=== PATIENT | male | born 1960 | race Caucasian/White ===

== ENCOUNTER 2022-04-18 09:36 | Emergency (ER) | payer BC, SELFPAY ==
[2022-04-18 10:32] VITALS: BP 143/85; PULSE 93; RESP 16; TEMP 35.9; BMI 23.4
[2022-04-18 14:05] VITALS: BP 151/84; PULSE 94; RESP 18; O2SAT 95
--- NOTE | 2022-04-18 14:27 | ED_ITS ---
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 No trauma no injury, but he does uses arms heavily, but now he has been off work. I wakes up in the morning very stiff and sore. He tried some ibuprofen that really upsets his stomach, but it helped his hand significantly. He has not had any fever chills other synovitis type symptoms. Patient does take blood pressure medication lisinopril for his hypertension, otherwise is quite healthy, he is very physically active. No redness or warmth or ACL or red cellulitic streaking noted Related Data Home Medications Medication Instructions Recorded Confirmed lisinopril 20 mg tablet 30 mg PO DAILY 04/18/22 04/18/22 Previous Rx's Medication Instructions Recorded methylprednisolone 4 mg tablets in See Rx Instructions PO .COMPLEX 04/18/22 a dose pack (Medrol (Didier)) #21 ea Allergies Allergy/AdvReac Type Severity Reaction Status Date / Time No Known Drug Allergies Allergy Verified 04/18/22 10:37 Review of Systems Status of ROS: Reports: 6 or more systems reviewed and unremarkable except as noted in History and below [facility] Medical History Hypertension Social History Smoking Status: Current every day smoker What tobacco products do you use: cigarettes Second hand tobacco smoke exposure: Yes How often do you have a drink containing alcohol: monthly or less How many standard drinks containing alcohol do you have on a typical day: 1 or 2 How often do you have six or more drinks on one occasion: Never AUDIT-C Alcohol total score: 1 Non-prescribed substance use: denies use Exam Narrative: Exam Narrative: Objective: Patient's vital signs are unremarkable and slightly elevated blood pressure He is alert orient x3 no distress He has got bilateral scarring on his wrist he had a carpal tunnel on the right that retain fluid in the had to have the forearm opened up to mid forearm. He has no redness or warmth of either hand but he does have some mild soft tissue swelling of his wrist bilaterally and there is no erythema or warmth, he also has limited director presales strength bilaterally consistent with inflammation is wrist. Actually has full passive range of motion of his wrist and fingers. Const: Vital Signs, click to edit/add: Vital Signs - 24 hr 04/18/22 10:32 04/18/22 14:05 Temperature 96.7 F L Pulse Rate [Right Pulse Oximeter] 93 94 Respiratory Rate 16 18 Blood Pressure [Ri t Upper Arm] 143/85 H 151/84 H Pulse Oximetry 95 Oxygen Delivery Me thod Room Air Room Air Course Vital Signs Vital signs: Initial Vital Signs Temperature 96.7 F L 04/18/22 10:32 Temperature Source Temporal Artery Scan 04/18/22 10:32 Pulse Rate 93 04/18/22 10:32 Pulse Rhythm 04/18/22 10:32 Respiratory Rate 16 04/18/22 10:32 Blood Pressure 143/85 H 04/18/22 10:32 Blood Pressure Mean 104 04/18/22 10:32 Blood Pressure Position Supine 04/18/22 10:32 Oxygen Delivery Method 04/18/22 10:32 Vital Signs Temperature 96.7 F L 04/18/22 10:32 Pulse Rate 93 04/18/22 10:32 Respiratory Rate 16 04/18/22 10:32 Blood Pressure 143/85 H 04/18/22 10:32 Oxygen Delivery Method 04/18/22 10:32 Temperature 96.7 F L 04/18/22 10:32 Pulse Rate 94 04/18/22 14:05 Respiratory Rate 18 04/18/22 14:05 Blood Pressure 151/84 H 04/18/22 14:05 Pulse Oximetry 95 04/18/22 14:05 Oxygen Delivery Method 04/18/22 14:05 Medical Decision Making MDM Narrative Medical decision making narrative: Patient has bilateral wrist swelling 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 I would recommend bilateral wrist splints to wear around the clock for the next few days, light activity, continue icing, at Advil bothers his stomach but he is able to tolerate aspirin would recommend 2 adult aspirin twice a day for the next week, also give a Medrol Dosepak, will check a heme 4 basic 7 a CRP. He should recheck with his regular doctor within the next 2-3 days all: Back with the results of his labs if they are abnormal. Lab Data Labs: Lab Results 04/18/22 04/18/22 Range/Units 14:44 14:44 WBC 6.26 (4.50-11.00) K/uL RBC 4.97 (4.30-5.90) m/uL Hgb 15.3 (13.5-17.5) gm/dL Hct 43.3 (37.0-53.0) % MCV 87 (80-100) fL MCH 31 (26-34) pg MCHC 35 (32-36) gm/dL RDW Coeff of Rosalina 12.0 (11.5-15.5) % Plt Count 415 (140-440) K/uL Neut % (Auto) 64.0 (42.0-72.0) % Lymph % (Auto) 22.4 (20-44) % [place] % (Auto) 9.1 (0.0-11.0) % Eos % (Auto) 4.0 (0.0-7.0) % Baso % (Auto) 0.3 (0.0-3.0) % Neut # (Auto) 4.01 (1.7-7.0) K/uL Lymph # (Auto) 1.40 (0.90-2.90) K/uL [place] # (Auto) 0.60 (0.00-0.90) K/UL Eos # (Auto) 0.25 (0.00-0.50) K/uL Baso # (Auto) 0.02 (0.00-0.30) K/uL Sodium 131 L (135-149) mmol/L Potassium 4.6 (3.6-5.1) mmol/L Chloride 98 (96-114) mmol/L Carbon Dioxide 24 (20-32) mmol/L BUN 14 (7-30) mg/dL Creatinine 0.7 (0.5-1.5) mg/dL Estimated Creat Clear 68.23 Estimated GFR 104 ml/min Glucose 102 (60-115) mg/dL Uric Acid 4.1 (2.2-8.4) mg/dL Calcium 9.2 (8.4-10.6) mg/dL C-Reactive Protein 4.0 H (0.5-1.0) mg/dL Discharge Plan Discharge Clinical Impression: Acute pain of both wrists Patient Disposition: Home w/ Parent or Adult Condition: Stable Additional Instructions: Splints to wear around the clock, make sure they are not too tight, icing 20 minutes 3 to 4 times a day, aspirin to twice a day for 7 days, Medrol Dosepak will be called into your pharmacy, recommend recheck with your doctor in 2-3 days to make sure this is working, will call back with abnormalities in your blood work Activity Level: Light activity Discharge Diet: Regular Prescriptions: New methylprednisolone [Medrol (Didier)] 4 mg tablets,dose pack See Rx Instructions .ROUTE .COMPLEX Qty: 21 0RF Rx Instructions: orally per package directions No Action lisinopril 20 mg tablet 30 mg PO DAILY Label Comments: TAKE ONE TABLET BY MOUTH ONE TIME DAILY Stand Alone Forms: ASOCSth Info Instructions
[2022-04-18 14:55] LABS: Basophils Absolute Auto 0.02 K/uL (0.00-0.30); Basophils Percent Auto 0.3 % (0.0-3.0); Eosinophils Absolute Auto 0.25 K/uL (0.00-0.50); Hematocrit 43.3 % (37.0-53.0); Hemoglobin* 15.3 gm/dL (13.5-17.5); Immature Granulocytes Abs Auto 0.01 K/uL (0.00-0.30); Immature Granulocytes Pct Auto 0.2 %; Lymphocytes Percent Auto 22.4 % (20-44); Mean Corpuscular HGB Conc 35 gm/dL (32-36); Mean Corpuscular Hemoglobin 31 pg (26-34); Mean Corpuscular Volume 87 fL (80-100); Monocytes Percent Auto 9.1 % (0.0-11.0); Neutrophils Absolute Auto 4.01 K/uL (1.7-7.0); Platelet Count* 415 K/uL (140-440); Red Blood Count 4.97 m/uL (4.30-5.90); White Blood Count* 6.26 K/uL (4.50-11.00)
[2022-04-18 14:59] LABS: Slide Review Reflex No
[2022-04-18 15:06] LABS: Chloride* 98 mmol/L (96-114); Potassium* 4.6 mmol/L (3.6-5.1); Sodium* 131 mmol/L (135-149)
--- NOTE | 2022-04-18 15:06 | ED.NURSE ---
Wrist splint placed on right and left wrists.
[2022-04-18 15:09] LABS: Creatinine* 0.7 mg/dL (0.5-1.5); Est. Creatinine Clearance* 68.23; Estimated Glomerular Filt Rate 104 ml/min
[2022-04-18 15:10] LABS: Blood Urea Nitrogen* 14 mg/dL (7-30); Calcium* 9.2 mg/dL (8.4-10.6); Carbon Dioxide* 24 mmol/L (20-32); Glucose* 102 mg/dL (60-115); Uric Acid* 4.1 mg/dL (2.2-8.4)
== END 2022-04-18 14:50 | disposition home or self-care (01) ==
PROVIDERS: Emergency Provider Family Medicine
DX: M25.532 Pain in left wrist (principal); M25.531 Pain in right wrist
CPT/HCPCS: 36415; 80048; 84550; 85025; 86140; 99283